=== PATIENT | male | born 1950 | race Caucasian/White ===

== ENCOUNTER 2024-03-30 09:37 | Emergency (ER) | payer MEDICARE, OTHER ==
[2024-03-30 09:55] VITALS: PULSE 97
--- NOTE | 2024-03-30 10:16 | ERPHSYRPT ---
- History of Present Illness Time Seen by Provider: 03/30/24 10:05 Source: patient Exam Limitations: no limitations Patient Subjective Stated Complaint: Pt had a carpal tunnel and trigger finger done on March 22 at [place] and then on 03/25 or 03/26 pt began having swelling and redness to his right lower leg and foot and was placed on antibiotics on Friday, swelling has gotten worse and a red streak is going up his leg Triage Nursing Assessment: Pt brought self to the ER, hypertensive, rates pain as 2/10, pulses normal, right lower leg has redness and swelling and right foot swelling, warm to touch, denies any injuries or any cuts, walked into the ER with a slight limp, doesn't appear to be in any distress Physician History: For the past 5 days pt has had red streaking of his right leg with swelling and pain and redness of his right leg & ankle. Pt states he has been taking clindamycin for the past 3 days. Pt denies fever, nausea, vomiting, chest pain, shortness of air; admits to chronic dry cough for the past 4 years. Allergies/Adverse Reactions: Penicillins Allergy (Verified 03/30/24 09:55) Sulfa (Sulfonamide Antibiotics) Allergy (Verified 03/30/24 09:55) Home Medications: clindamycin HCL [Clindamycin HCl] 300 mg PO TID 03/30/24 [History] Hx Tetanus, Diphtheria Vaccination/Date Given: No Hx Influenza Vaccination/Date Given: Yes Hx Pneumococcal Vaccination/Date Given: Yes Travel Risk - International Travel Have you traveled outside of the country in past 3 weeks: No - Emerging Infectious Disease Are you exhibiting symptoms associated with any current EIDs: No - Review of Systems Constitutional: No Fever Respiratory: Cough, No Dyspnea Cardiac: No Chest Pain Abdominal/Gastrointestinal: No Abdominal Pain, No Nausea, No Vomiting Musculoskeletal: Other (swelling/redness of right leg/ankle) Neurological: No Headache - Past Medical History Pertinent Past Medical History: Yes Neurological History: No Pertinent History Cardiac History: No Pertinent History Respiratory History: No Pertinent History Endocrine Medical History: No Pertinent History Musculoskeletal History: No Pertinent History Other Medical History: L SABINA >20 years ago. - Past Surgical History Past Surgical History: Yes Gastrointestinal: Cholecystectomy, Hemorrhoidectomy Musculoskeletal: Joint Replacement Other Surgical History: left hip replaced, right carpal tunnel, right trigger finger - Social History Smoking Status: Never smoker Exposure to second hand smoke: No Drug Use: none - Social Determinants of Health Will the patient participate in the screening: Yes Do you worry about a steady place to live?: No Do you have any problems with any of the following?: No known problems In the past 12 months,have you had to go without utilities?: No Transportation Issues: No Has anyone in your support network made you feel unsafe?: No Have you or anyone in your house had to go without enough: No - Nursing Vital Signs Nursing Vital Signs: Initial Vital Signs Pulse Rate 97 H 03/30/24 09:45 Blood Pressure 173/115 03/30/24 09:45 O2 Sat by Pulse Oximetry 96 03/30/24 09:45 Pain Scale Pain Intensity 2 - Physical Exam General Appearance: alert Eyes, Ears, Nose, Throat Exam: pharynx normal Neck Exam: normal inspection Cardiovascular/Respiratory Exam: normal breath sounds, heart sounds normal Gastrointestinal/Abdominal Exam: soft (B.S. normal) Hips Exam: bilateral: normal range of motion Legs Exam: right leg: swelling (Distal half of right leg is mildly edematous, tender, erythematous and warm with red streaking from the ankle to mid leg) Knees Exam: bilateral knee: normal range of motion Ankle Exam: right ankle: swelling Foot Exam: right foot: swelling Neuro/Tendon Exam: normal sensation SpO2 Interpretation: normal SpO2: 96 O2 Delivery: Room Air - Course Nursing assessment & vital signs reviewed: Yes - Radiology Exams Right Lower Leg X-ray Interpretation: Discussed w/ radiologist (No bony, articular or soft tissue abnormalities. See rest of report.) - Radiology Ultrasound Exam Venous Lower Extremity Ultrasound: discussed w/radiologist (Right leg negative for DVT) Ordered Tests: Active Orders 24 hr Category Date Time Status IV Insertion STAT Care 03/30/24 10:19 Active LOWER LEG Stat Exams 03/30/24 11:34 Completed VENOUS UNILAT/LIMITED EXTREMIT [US] Stat Exams 03/30/24 11:33 Completed BLOOD CULTURE Stat Lab 03/30/24 11:10 Received BMP Stat Lab 03/30/24 11:00 Completed CBC W DIFF Stat Lab 03/30/24 11:00 Completed MAGNESIUM Stat Lab 03/30/24 11:00 Completed SED RATE [Erythrocyte Sedimentation Rate] Stat Lab 03/30/24 11:00 Completed Medication Summary Discontinued Medications Generic Name Dose Route Start Last Admin Trade Name Ally PRN Reason Stop Dose Admin Vancomycin HCl 1 gm in 200 mls @ 125 mls/hr 03/30/24 10:22 03/30/24 11:46 Vancomycin 1 Gram/200 Ml Bag IV 03/30/24 11:57 125 mls/hr STAT ONE 125 mls/hr Administration Ceftriaxone Sodium 1 gm in 100 mls @ 200 mls/hr 03/30/24 10:22 03/30/24 11:35 Rocephin 1 Gm / 100 Ml Nacl IV 03/30/24 10:51 Infused STAT ONE Infusion Ceftriaxone Sodium Confirm 03/30/24 10:56 Rocephin 1 Gm / 100 Ml Nacl Administered 03/30/24 10:57 Dose 1 gm in 100 mls @ ud IV .STK-MED ONE Vancomycin HCl Confirm 03/30/24 11:44 Vancomycin 1 Gram/200 Ml Bag Administered 03/30/24 11:45 Dose 1 gm in 200 mls @ ud IV .STK-MED ONE Lab/Rad Data: Laboratory Result Diagrams 03/30/24 11:00 03/30/24 11:00 Laboratory Results 03/30/24 03/30/24 03/30/24 Range/Units 11:00 11:00 11:00 WBC 5.6 (4.23-9.07) x10^3/uL RBC 4.65 (4.63-6.08) x10^6/uL Hgb 14.7 (13.7-17.5) g/dL Hct 43.2 (40.1-51.0) % MCV 92.9 H (79.0-92.2) fL MCH 31.6 (25.7-32.2) pg MCHC 34.0 (32.3-36.5) g/dL RDW 12.9 (11.6-14.4) % Plt Count 158 L (163-337) x10^3/uL MPV 9.6 (9.4-12.4) fL Gran % 66.1 (34.0-67.9) % Immature Gran % (Auto) 0.4 (0.001-0.429) % Nucleat RBC Rel Count 0.0 (0.00-0.2) % Eos # (Auto) 0.08 (0.04-0.54) x10^3/uL Immature Gran # (Auto) 0.02 (0.001-0.031) x10^3u/L Absolute Lymphs (auto) 1.33 (1.32-3.57) x10^3/uL Absolute Monos (auto) 0.40 (0.30-0.82) x10^3/uL Absolute Nucleated RBC 0.00 (0.00-0.012) x10^3u/L Lymphocytes % 23.8 (21.8-53.1) % Monocytes % 7.2 (5.3-12.2) % Eosinophils % 1.4 (0.8-7.0) % Basophils % 1.1 (0.2-1.2) % Absolute Granulocytes 3.70 (1.78-5.38) x10^3/uL Basophils # 0.06 (0.01-0.08) x10^3/uL ESR 19 H (0-15) mm/hr Sodium 142 (135-145) mmol/L Potassium 3.9 (3.5-5.1) mmol/L Chloride 106 (98-107) mmol/L Carbon Dioxide 28 (22-30) mmol/L Anion Gap 12.3 (5-15) MEQ/L BUN 16 (9-20) mg/dL Creatinine 1.05 (0.66-1.25) mg/dL Estimated GFR 74.5 ML/MIN Glucose 109 H (74-106) mg/dL Calcium 9.6 (8.4-10.2) mg/dL Magnesium 2.3 (1.6-2.3) mg/dL - Progress Progress: unchanged Will see patient in: other (Dr [id number]) accepted pt for transfer to [facility] ER.) Counseled pt/family regarding: lab results, diagnosis, rad results Medical Desision Making - Diagnostic Testing Diagnostic test were ordered, analyzed, and reviewed by me: Yes Radiological Interpretation: Discussed w/ radiologist - Departure Departure Disposition: Transfer ([facility]) Clinical Impression: Cellulitis of right leg, Lymphangitis of right leg Condition: Stable Critical Care Time: No Referrals: FABIOLA CHAVEZ, [Primary Care Provider] - Follow up/PCP as directed
[2024-03-30] MEDS ORDERED: ROCEPHIN 1 GM / 100 ML NaCl 1 GM/100 ML IVPB IV ONE (10:56)
[2024-03-30] MEDS: ROCEPHIN 1 GM / 100 ML NaCl 1 GM/100 ML IVPB IV ONE (10:58)
[2024-03-30 11:02] VITALS: BP 151/98
[2024-03-30 11:16] LABS: BASOPHIL % 1.1 % (0.2-1.2); Basophil (Absolute #) 0.06 x10^3/uL (0.01-0.08); Eosinophil % 1.4 % (0.8-7.0); Eosinophil (Absolute #) 0.08 x10^3/uL (0.04-0.54); Hematocrit 43.2 % (40.1-51.0); Hemoglobin 14.7 g/dL (13.7-17.5); IMMATURE GRAN # 0.02 x10^3u/L (0.001-0.031); IMMATURE GRAN % 0.4 % (0.001-0.429); Lymphocyte (Absolute #) 1.33 x10^3/uL (1.32-3.57); Lymphocytes % 23.8 % (21.8-53.1); Mean Cell Volume 92.9 fL (79.0-92.2); Mean Corpuscular Hemoglobin 31.6 pg (25.7-32.2); Mean Platelet Volume 9.6 fL (9.4-12.4); Monocytes % 7.2 % (5.3-12.2); Neutrophil % 66.1 % (34.0-67.9); Platelet Count 158 x10^3/uL (163-337); Red Blood Count 4.65 x10^6/uL (4.63-6.08); Red Cell Distribution Width 12.9 % (11.6-14.4); White Blood Count 5.6 x10^3/uL (4.23-9.07)
[2024-03-30 11:29] LABS: ANION GAP 12.3 MEQ/L (5-15); Calcium 9.6 mg/dL (8.4-10.2); Creatinine 1 1.05 mg/dL (0.66-1.25); EST GLOMERULAR FILTRATION RATE 74.5 ML/MIN; MAGNESIUM 2.3 mg/dL (1.6-2.3); Potassium 3.9 mmol/L (3.5-5.1)
[2024-03-30] MEDS ORDERED: VANCOMYCIN 1 GRAM/200 ML BAG 1 GM/200 ML PIGGYBACK IV ONE (11:44)
[2024-03-30] MEDS: VANCOMYCIN 1 GRAM/200 ML BAG 1 GM/200 ML PIGGYBACK IV ONE (11:46)
--- NOTE | 2024-03-30 12:45 | XRAY ---
Indication: Pain and swelling. Two-dimensional sonogram and color Doppler imaging major venous vessels right leg performed. Comparison: None No thrombus seen in the examined deep venous vessels right leg including greater saphenous vein. Veins demonstrate normal compressibility. Venous waveforms are normal with and without augmentation. Impression: Right leg negative for DVT.
[2024-03-30 12:47] VITALS: O2SAT 96
--- NOTE | 2024-03-30 12:52 | XRAY ---
Indication: Pain and swelling 2-3 days. Comparison: None 2 view right lower leg demonstrates osteopenia, small posterior/plantar heel spurs, and 8 mm round benign-appearing suprapatella soft tissue calcification. No other bony, articular, or soft tissue abnormalities.
== END 2024-03-30 13:53 | disposition short-term general hospital (02) ==
LOC: ED 09:37
DX: L03.115 Cellulitis of right lower limb (principal); M79.604 Pain in right leg; M25.571 Pain in right ankle and joints of right foot; Z79.899 Other long term (current) drug therapy
CPT/HCPCS: 36000; 36415; 73590; 80048; 83735; 85025; 85652; 87040; 93971; 96365; 96367; 99284; J0696; J3370

== ENCOUNTER 2025-05-24 15:20 | Observation (INO) | payer MEDICARE, OTHER ==
[2025-05-24 15:55] LABS: BASOPHIL % 0.4 % (0.2-1.2); Basophil (Absolute #) 0.04 x10^3/uL (0.01-0.08); Eosinophil (Absolute #) 0 x10^3/uL (0.04-0.54); Hematocrit 43.7 % (40.1-51.0); Hemoglobin 14.6 g/dL (13.7-17.5); IMMATURE GRAN # 0.08 x10^3u/L (0.001-0.031); IMMATURE GRAN % 0.8 % (0.001-0.429); Lymphocyte (Absolute #) 0.57 x10^3/uL (1.32-3.57); Mean Corpuscular Hemoglobin 30.9 pg (25.7-32.2); Mean Corpuscular Hgb Concent. 33.4 g/dL (32.3-36.5); Monocyte (Absolute #) 0.42 x10^3/uL (0.30-0.82); NUCLEATED RBC # 0.00 x10^3u/L (0.00-0.012); NUCLEATED RBC % 0.0 % (0.00-0.2); Platelet Count 109 x10^3/uL (163-337); Red Blood Count 4.73 x10^6/uL (4.63-6.08); White Blood Count 10.6 x10^3/uL (4.23-9.07)
[2025-05-24] MEDS ORDERED: MOTRIN 600 MG ONE (15:55)
[2025-05-24] MEDS ORDERED: TYLENOL 325 MG ONE (15:55)
[2025-05-24] MEDS: TYLENOL 325 MG PO STA (15:58)
[2025-05-24] MEDS: MOTRIN 600 MG PO STA (15:58)
[2025-05-24 16:01] LABS: Calcium 8.8 mg/dL (8.4-10.2); Carbon Dioxide 26.0 mmol/L (22-30); Creatinine 1 1.19 mg/dL (0.66-1.25); EST GLOMERULAR FILTRATION RATE 63.7 ML/MIN; Glucose 139.0 mg/dL (74-106); Potassium 4.5 mmol/L (3.5-5.1); SGOT/AST 33.0 U/L (17-59); SGPT/ALT 34.0 U/L (0-50); Total Protein 7.4 g/dL (6.3-8.2)
[2025-05-24 16:01] LABS: Glucose, Urine Negative (Negative); Protein,Urine Dip Trace (Negative); WBC 0-2 /HPF (0-5)
[2025-05-24 16:14] LABS: NT PRO BNPII 127 pg/mL (<300); TROPONIN < 0.012 ng/mL (0.000-0.033)
--- NOTE | 2025-05-24 16:26 | XRAY ---
Indication: Fever. Comparison: None Portable chest inflated and clear. Heart not enlarged with small bilateral perihilar calcified granulomas. Bony thorax intact with minimal degenerative changes. Impression: Nonacute chest with chronic features.
[2025-05-24 16:53] LABS: Slide Review 1 YES
[2025-05-24 17:02] LABS: INFLUENZA A NEGATIVE (NEGATIVE); INFLUENZA B NEGATIVE (NEGATIVE); RESPIRATORY SYNCTIAL VIRUS NEGATIVE (NEGATIVE); SARS-CoV-2 Xpert Express NEGATIVE (NEGATIVE)
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
[2025-05-24] MEDS ORDERED: DUONEB 0.5-3 MG/3 ml Neb IH ONE (19:51)
[2025-05-24] MEDS: solu-MEDROL 125 MG, Sterile H2O 10 ml 2 ML IV ONE (19:54)
[2025-05-24] MEDS ORDERED: Sterile H2O 10 ml IJ ONE (19:54)
[2025-05-24] MEDS: DUONEB 0.5-3 MG/3 ml Neb IH ONE (20:04)
[2025-05-24] MEDS ORDERED: Levofloxacin 500MG/100ML D5W 500 MG/100 ML BAG IV ONE (20:14)
[2025-05-24] MEDS: Levofloxacin 500MG/100ML D5W 500 MG/100 ML BAG IV STA (20:15)
--- NOTE | 2025-05-24 21:12 | PCM.HP ---
History of Present Illness - Chief Complaint Chief Complaint: Hypoxia, fever, tachycardia History of Present Illness: is a 74 year old male with past medical history of class I obesity, obstructive sleep apnea, long COVID (had symptoms for 3 months), and HLD presented to the ED complaining of nausea with vomiting and dizziness that started earlier in the day while he was at [facility] for work. 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 We went home and felt weak and was having shortness of breath. He reportedly went to an outpatient center for evaluation and was hypoxic with O2 sats in the 80s on room air. Was referred to come to the ED where his oxygen sats are levels have been in the mid 90s on room air. He was noted to be tachycardic with heart rate in the 120s and had a documented fever of 100.6 F. He denies chest pain, palpitations, or diarrhea. He was empirically treated with Levaquin for possible pneumonia. Lab workup was notable for leukocytosis but no clear source of infection. COVID-19, influenza and RSV were negative. Patient had a CTA of the chest to rule out PE due to elevated D-dimer and preliminary radiology read was that there was no PE but there were findings of emphysema, fatty liver, hepatic cyst, old granulomatous disease. 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 He denies smoking or exposure to second hand smoke. Patient reports feeling much better now and is ready to go home. - Review of Systems Constitutional: Fever, Chills, Fatigue, Weakness Eyes: No Symptoms Ears, Nose, & Throat: No Symptoms Respiratory: Cough, Short Of Breath, Wheezing Cardiac: No Symptoms Abdominal/Gastrointestinal: Nausea, Vomiting Genitourinary Symptoms: No Symptoms Musculoskeletal: No Symptoms Skin: No Symptoms Neurological: No Symptoms Psychological: No Symptoms Endocrine: No Symptoms Hematologic/Lymphatic: No Symptoms Immunological/Allergic: No Symptoms All Other Systems: Reviewed and Negative Medications & Allergies Home Medications: Home Medication List Rosuvastatin Calcium 1 tab PO DAILY 03/30/25 [History Confirmed 05/24/25] Allergies/Adverse Reactions: Allergies Allergy/AdvReac Type Severity Reaction Status Date / Time Penicillins Allergy Verified 05/24/25 16:08 Sulfa (Sulfonamide Allergy Verified 05/24/25 16:08 Antibiotics) - Past Medical History Past Medical History: Yes Neurological History: No Pertinent History ENT History: No Pertinent History Cardiac History: No Pertinent History Respiratory History: Asthma, Sleep Apnea Endocrine Medical History: No Pertinent History Musculoskelatal History: No Pertinent History, Arthritis GI Medical History: No Pertinent History History: No Pertinent History Pyscho-Social History: No Pertinent History Male Reproductive Disorders: No Pertinent History Comment: L SABINA >20 years ago. - Past Surgical History Past Surgical History: Yes Neuro Surgical History: No Pertinent History Cardiac History: No Pertinent History Respiratory Surgery: No Pertinent History GI Surgical History: Cholecystectomy, Hemorrhoidectomy Genitourinary Surgical Hx: No Pertinent History Musculskeletal Surgical Hx: Joint Replacement, Orthopedic Surgery Male Surgical History: No Pertinent History Other Surgical History: left hip replaced, right carpal tunnel, right trigger finger, tendon repair left elbow - Social History Smoking Status: Never smoker Exposure to second hand smoke: No Alcohol: None Drug Use: none - Social Determinants of Health Will the patient participate in the screening: Yes Do you worry about a steady place to live?: No Do you have any problems with any of the following?: No known problems In the past 12 months,have you had to go without utilities?: No Have you or anyone in your house had to go without enough: No Transportation Issues: No Has anyone in your support network made you feel unsafe?: No - Physical Exam Vital Signs: Vital Signs - 24 hr Temp Pulse Resp BP BP Pulse Ox 05/24/25 20:10 94 L 05/24/25 20:04 99 H 18 94 L 05/24/25 20:00 99 F 97 H 26 H 106/71 99 05/24/25 19:30 96 H 31 H 106/75 99 05/24/25 19:00 102 H 16 97/73 95 05/24/25 18:30 104 H 21 103/61 94 L 05/24/25 18:00 109 H 31 H 112/63 92 L 05/24/25 17:30 112 H 31 H 124/76 93 L 05/24/25 17:00 120 H 31 H 140/74 140/74 95 05/24/25 16:30 120 H 26 H 146/88 95 05/24/25 16:24 120 H 20 130/80 98 05/24/25 16:00 120 H 23 130/80 95 05/24/25 15:45 95 05/24/25 15:40 100.6 F 122 H 20 132/84 98 05/24/25 15:30 121 H 27 H 132/84 94 L General Appearance: no apparent distress Neurologic Exam: alert, oriented x 3, cooperative, normal mood/affect Eye Exam: PERRL/EOMI Ears, Nose, Throat Exam: moist mucous membranes Neck Exam: normal inspection Respiratory Exam: diminished breath sounds, wheezing Cardiovascular Exam: regular rate/rhythm, normal heart sounds Gastrointestinal/Abdomen Exam: soft, normal bowel sounds Extremity Exam: normal inspection Skin Exam: normal color Results - Labs Lab/Micro Results: Lab Results-Last 24 Hours 05/24/25 05/24/25 05/24/25 Range/Units 15:45 15:45 15:45 WBC 10.6 H (4.23-9.07) x10^3/uL RBC 4.73 (4.63-6.08) x10^6/uL Hgb 14.6 (13.7-17.5) g/dL Hct 43.7 (40.1-51.0) % MCV 92.4 H (79.0-92.2) fL MCH 30.9 (25.7-32.2) pg MCHC 33.4 (32.3-36.5) g/dL RDW 13.0 (11.6-14.4) % Plt Count 109 L (163-337) x10^3/uL MPV 9.6 (9.4-12.4) fL Gran % 89.4 H (34.0-67.9) % Immature Gran % (Auto) 0.8 H (0.001-0.429) % Nucleat RBC Rel Count 0.0 (0.00-0.2) % Eos # (Auto) 0 L (0.04-0.54) x10^3/uL Immature Gran # (Auto) 0.08 H (0.001-0.031) x10^3u/L Absolute Lymphs (auto) 0.57 L (1.32-3.57) x10^3/uL Absolute Monos (auto) 0.42 (0.30-0.82) x10^3/uL Absolute Nucleated RBC 0.00 (0.00-0.012) x10^3u/L Lymphocytes % 5.4 L (21.8-53.1) % Monocytes % 4.0 L (5.3-12.2) % Eosinophils % 0.0 L (0.8-7.0) % Basophils % 0.4 (0.2-1.2) % Absolute Granulocytes 9.46 H (1.78-5.38) x10^3/uL Basophils # 0.04 (0.01-0.08) x10^3/uL D-Dimer (0.0-0.50) mg/L Sodium 136 (135-145) mmol/L Potassium 4.5 (3.5-5.1) mmol/L Chloride 102 (98-107) mmol/L Carbon Dioxide 26 (22-30) mmol/L Anion Gap 12.2 (5-15) MEQ/L BUN 19 (9-20) mg/dL Creatinine 1.19 (0.66-1.25) mg/dL Estimated GFR 63.7 ML/MIN Glucose 139 H (74-106) mg/dL Lactic Acid 1.9 (0.4-2.0) Calcium 8.8 (8.4-10.2) mg/dL Total Bilirubin 1.20 (0.2-1.3) mg/dL AST 33 (17-59) U/L ALT 34 (0-50) U/L Alkaline Phosphatase 50 (38-126) U/L Troponin I (0.000-0.033) ng/mL NT-Pro-B Natriuret Pep (<300) pg/mL Serum Total Protein 7.4 (6.3-8.2) g/dL Albumin 4.3 (3.5-5.0) g/dL Urine Color (Yellow) Urine Appearance (Clear) Urine pH (4.6-8.0) Ur Specific Skippers (1.005-1.030) Urine Protein (Negative) Urine Glucose (UA) (Negative) mg/dL Urine Ketones (Negative) Urine Blood (Negative) Urine Nitrite (Negative) Urine Bilirubin (Negative) Urine Urobilinogen (0.2) mg/dL Ur Leukocyte Esterase (Negative) U Hyaline Cast (Auto) (0-2) /LPF Urine Microscopic RBC (0-5) /HPF Urine Microscopic WBC (0-5) /HPF Ur Epithelial Cells (None Seen) /HPF Urine Bacteria (None Seen) /HPF Urine Culture Reflexed (NO) Influenza Type A Ag (NEGATIVE) Influenza Type B Ag (NEGATIVE) RSV (PCR) (NEGATIVE) SARS-CoV-2 (PCR) (NEGATIVE) Slides for Path Review YES 05/24/25 05/24/25 05/24/25 Range/Units 15:45 15:45 15:51 WBC (4.23-9.07) x10^3/uL RBC (4.63-6.08) x10^6/uL Hgb (13.7-17.5) g/dL Hct (40.1-51.0) % MCV (79.0-92.2) fL MCH (25.7-32.2) pg MCHC (32.3-36.5) g/dL RDW (11.6-14.4) % Plt Count (163-337) x10^3/uL MPV (9.4-12.4) fL Gran % (34.0-67.9) % Immature Gran % (Auto) (0.001-0.429) % Nucleat RBC Rel Count (0.00-0.2) % Eos # (Auto) (0.04-0.54) x10^3/uL Immature Gran # (Auto) (0.001-0.031) x10^3u/L Absolute Lymphs (auto) (1.32-3.57) x10^3/uL Absolute Monos (auto) (0.30-0.82) x10^3/uL Absolute Nucleated RBC (0.00-0.012) x10^3u/L Lymphocytes % (21.8-53.1) % Monocytes % (5.3-12.2) % Eosinophils % (0.8-7.0) % Basophils % (0.2-1.2) % Absolute Granulocytes (1.78-5.38) x10^3/uL Basophils # (0.01-0.08) x10^3/uL D-Dimer 0.54 H (0.0-0.50) mg/L Sodium (135-145) mmol/L Potassium (3.5-5.1) mmol/L Chloride (98-107) mmol/L Carbon Dioxide (22-30) mmol/L Anion Gap (5-15) MEQ/L BUN (9-20) mg/dL Creatinine (0.66-1.25) mg/dL Estimated GFR ML/MIN Glucose (74-106) mg/dL Lactic Acid (0.4-2.0) Calcium (8.4-10.2) mg/dL Total Bilirubin (0.2-1.3) mg/dL AST (17-59) U/L ALT (0-50) U/L Alkaline Phosphatase (38-126) U/L Troponin I < 0.012 (0.000-0.033) ng/mL NT-Pro-B Natriuret Pep 127 (<300) pg/mL Serum Total Protein (6.3-8.2) g/dL Albumin (3.5-5.0) g/dL Urine Color Yellow (Yellow) Urine Appearance Clear (Clear) Urine pH 8.0 (4.6-8.0) Ur Specific Skippers 1.020 (1.005-1.030) Urine Protein Trace A (Negative) Urine Glucose (UA) Negative (Negative) mg/dL Urine Ketones Negative (Negative) Urine Blood Trace (Negative) Urine Nitrite Negative (Negative) Urine Bilirubin Negative (Negative) Urine Urobilinogen 1.0 A (0.2) mg/dL Ur Leukocyte Esterase Negative (Negative) U Hyaline Cast (Auto) NONE SEEN (0-2) /LPF Urine Microscopic RBC 6-10 A (0-5) /HPF Urine Microscopic WBC 0-2 (0-5) /HPF Ur Epithelial Cells None Seen (None Seen) /HPF Urine Bacteria None Seen (None Seen) /HPF Urine Culture Reflexed YES (NO) Influenza Type A Ag (NEGATIVE) Influenza Type B Ag (NEGATIVE) RSV (PCR) (NEGATIVE) SARS-CoV-2 (PCR) (NEGATIVE) Slides for Path Review 05/24/25 05/24/25 Range/Units 16:13 19:55 WBC (4.23-9.07) x10^3/uL RBC (4.63-6.08) x10^6/uL Hgb (13.7-17.5) g/dL Hct (40.1-51.0) % MCV (79.0-92.2) fL MCH (25.7-32.2) pg MCHC (32.3-36.5) g/dL RDW (11.6-14.4) % Plt Count (163-337) x10^3/uL MPV (9.4-12.4) fL Gran % (34.0-67.9) % Immature Gran % (Auto) (0.001-0.429) % Nucleat RBC Rel Count (0.00-0.2) % Eos # (Auto) (0.04-0.54) x10^3/uL Immature Gran # (Auto) (0.001-0.031) x10^3u/L Absolute Lymphs (auto) (1.32-3.57) x10^3/uL Absolute Monos (auto) (0.30-0.82) x10^3/uL Absolute Nucleated RBC (0.00-0.012) x10^3u/L Lymphocytes % (21.8-53.1) % Monocytes % (5.3-12.2) % Eosinophils % (0.8-7.0) % Basophils % (0.2-1.2) % Absolute Granulocytes (1.78-5.38) x10^3/uL Basophils # (0.01-0.08) x10^3/uL D-Dimer (0.0-0.50) mg/L Sodium (135-145) mmol/L Potassium (3.5-5.1) mmol/L Chloride (98-107) mmol/L Carbon Dioxide (22-30) mmol/L Anion Gap (5-15) MEQ/L BUN (9-20) mg/dL Creatinine (0.66-1.25) mg/dL Estimated GFR ML/MIN Glucose (74-106) mg/dL Lactic Acid (0.4-2.0) Calcium (8.4-10.2) mg/dL Total Bilirubin (0.2-1.3) mg/dL AST (17-59) U/L ALT (0-50) U/L Alkaline Phosphatase (38-126) U/L Troponin I < 0.012 (0.000-0.033) ng/mL NT-Pro-B Natriuret Pep (<300) pg/mL Serum Total Protein (6.3-8.2) g/dL Albumin (3.5-5.0) g/dL Urine Color (Yellow) Urine Appearance (Clear) Urine pH (4.6-8.0) Ur Specific Skippers (1.005-1.030) Urine Protein (Negative) Urine Glucose (UA) (Negative) mg/dL Urine Ketones (Negative) Urine Blood (Negative) Urine Nitrite (Negative) Urine Bilirubin (Negative) Urine Urobilinogen (0.2) mg/dL Ur Leukocyte Esterase (Negative) U Hyaline Cast (Auto) (0-2) /LPF Urine Microscopic RBC (0-5) /HPF Urine Microscopic WBC (0-5) /HPF Ur Epithelial Cells (None Seen) /HPF Urine Bacteria (None Seen) /HPF Urine Culture Reflexed (NO) Influenza Type A Ag NEGATIVE (NEGATIVE) Influenza Type B Ag NEGATIVE (NEGATIVE) RSV (PCR) NEGATIVE (NEGATIVE) SARS-CoV-2 (PCR) NEGATIVE (NEGATIVE) Slides for Path Review - Radiology Impressions Radiology Exams & Impressions: Radiology Procedures Category Date Time Status CHEST 1 VIEW (PORTABLE) Stat Exams 05/24/25 15:46 Completed CHEST WITH CONTRAST [CT] Stat Exams 05/24/25 17:19 Taken - Other Procedures and Tests Respiratory Therapy 05/24/25 20:04 Respiratory Therapy Assessment DAILY Assessment/Plan (1) Acute respiratory failure with hypoxia Current Visit: Yes Status: Acute Assessment & Plan: Unclear etiology - possibly due to acute viral URI Not currently requiring supplemental oxygen Continues to have some wheezing and diminished breath sounds - will manage with PRN Duonebs and course of prednisone Code(s): J96.01 - ACUTE RESPIRATORY FAILURE WITH HYPOXIA (2) SIRS (systemic inflammatory response syndrome) Current Visit: Yes Status: Acute Assessment & Plan: No clear source of infection but possibly acute viral URI Monitor clinically off of antibiotics Acetaminophen for fever Tachycardia resolved with fluids Recheck CBC in AM for WBC count Follow-up blood culture results Code(s): R65.10 - SIRS OF NON-INFECTIOUS ORIGIN W/O ACUTE ORGAN DYSFUNCTION (3) Fever Current Visit: Yes Status: Acute Qualifiers: Fever type: unspecified Qualified Code(s): R50.9 - Fever, unspecified Assessment & Plan: Acetaminophen PRN Follow-up blood cultures Code(s): R50.9 - FEVER, UNSPECIFIED (4) Tachycardia Current Visit: Yes Status: Acute Assessment & Plan: Resolved with IV fluids Continue IV hydration for now until oral intake improves Code(s): R00.0 - TACHYCARDIA, UNSPECIFIED (5) Leukocytosis Current Visit: Yes Status: Acute Qualifiers: Leukocytosis type: unspecified Qualified Code(s): D72.829 - Elevated white blood cell count, unspecified Assessment & Plan: Recheck CBC in AM Code(s): D72.829 - ELEVATED WHITE BLOOD CELL COUNT, UNSPECIFIED (6) Lung abnormality Current Visit: Yes Status: Suspected Assessment & Plan: Given occupational history and previous Long COVID episode, would benefit from outpatient evaluation with pulmonary disease specialist Code(s): J98.4 - OTHER DISORDERS OF LUNG (7) Hyperlipidemia Current Visit: Yes Status: Acute Code(s): E78.5 - HYPERLIPIDEMIA, UNSPECIFIED (8) DARIAN (obstructive sleep apnea) Current Visit: Yes Status: Chronic Assessment & Plan: Does not use CPAP at home Code(s): G47.33 - OBSTRUCTIVE SLEEP APNEA (ADULT) (PEDIATRIC) (9) Nausea & vomiting Current Visit: Yes Status: Acute Qualifiers: Vomiting type: unspecified Qualified Code(s): R11.2 - Nausea with vomiting, unspecified Assessment & Plan: Ondansetron PRN Code(s): R11.2 - NAUSEA WITH VOMITING, UNSPECIFIED Telemedicine Encounter - Telemedicine Encounter Telemedicine Encounter: Regular diet as tolerated Heparin for DVT PPx Full Code Plan of care discussed with patient and primary RN Total time of care 70 mins "The entirety of this encounter was performed via Telemedicine" This visit was performed using real-time audio and video connection between my location and thepatients locationwith the assistance of a surrogateat the patients location. Written or verbal consent was obtained from the patient/guardian to perform this [facility]. Any patient questions regarding the telemedicine interaction were answered.
[2025-05-24] MEDS ORDERED: Zofran 4 MG/2 ML VIAL IV PRN (22:41)
[2025-05-24] MEDS ORDERED: TYLENOL 325 MG PO PRN (22:41)
[2025-05-24] MEDS ORDERED: DUONEB 0.5-3 MG/3 ml Neb IH PRN (22:44)
[2025-05-25 02:12] LABS: BASOPHIL % 0.1 % (0.2-1.2); Basophil (Absolute #) 0.01 x10^3/uL (0.01-0.08); Eosinophil (Absolute #) 0 x10^3/uL (0.04-0.54); Hematocrit 41.6 % (40.1-51.0); Hemoglobin 13.7 g/dL (13.7-17.5); IMMATURE GRAN # 0.04 x10^3u/L (0.001-0.031); IMMATURE GRAN % 0.5 % (0.001-0.429); Lymphocyte (Absolute #) 0.54 x10^3/uL (1.32-3.57); Mean Corpuscular Hemoglobin 30.6 pg (25.7-32.2); Mean Corpuscular Hgb Concent. 32.9 g/dL (32.3-36.5); Monocyte (Absolute #) 0.07 x10^3/uL (0.30-0.82); NUCLEATED RBC # 0.00 x10^3u/L (0.00-0.012); NUCLEATED RBC % 0.0 % (0.00-0.2); Platelet Count 101 x10^3/uL (163-337); Red Blood Count 4.48 x10^6/uL (4.63-6.08); White Blood Count 8.1 x10^3/uL (4.23-9.07)
[2025-05-25 02:33] LABS: Calcium 8.5 mg/dL (8.4-10.2); Carbon Dioxide 22.0 mmol/L (22-30); Creatinine 1 1.16 mg/dL (0.66-1.25); EST GLOMERULAR FILTRATION RATE 65.7 ML/MIN; Glucose 224.0 mg/dL (74-106); Potassium 4.5 mmol/L (3.5-5.1); SGOT/AST 29.0 U/L (17-59); SGPT/ALT 32.0 U/L (0-50); Total Protein 6.7 g/dL (6.3-8.2)
--- NOTE | 2025-05-25 05:12 | PCM.NOTE ---
Date and Time: 05/25/25 0502 Subjective Assessment: Mr. 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 He was initially evaluated at an outpatient center where he was hypoxic (SpO2 in the 80s on room air), prompting ED referral. Upon arrival to ED SpO2 mid-90s on room air, febrile (100.6 F), tachycardic (HR 120s). Denied chest pain, palpitations, or diarrhea. Treated empirically with IV fluids and one dose of levofloxacin. Lab findings remarkable for Leukocytosis which has now normalized to 8.1; BUN 22, creatinine 1.18 (baseline 1.31.4). Viral panel (COVID-19, influenza, RSV) negative. 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 Objective Data Vital Signs: Vital Signs - 24 hr Temp Pulse Resp BP BP Pulse Ox 05/25/25 04:00 97.3 F 76 16 114/61 90 L 05/24/25 23:54 98.5 F 91 H 16 115/58 93 L 05/24/25 21:03 97.6 F 95 H 18 114/57 94 L 05/24/25 20:33 93 L 05/24/25 20:10 94 L 05/24/25 20:04 99 H 18 94 L 05/24/25 20:00 99 F 97 H 26 H 106/71 99 05/24/25 19:30 96 H 31 H 106/75 99 05/24/25 19:00 102 H 16 97/73 95 05/24/25 18:30 104 H 21 103/61 94 L 05/24/25 18:00 109 H 31 H 112/63 92 L 05/24/25 17:30 112 H 31 H 124/76 93 L 05/24/25 17:00 120 H 31 H 140/74 140/74 95 05/24/25 16:30 120 H 26 H 146/88 95 05/24/25 16:24 120 H 20 130/80 98 05/24/25 16:00 120 H 23 130/80 95 05/24/25 15:45 95 05/24/25 15:40 100.6 F 122 H 20 132/84 98 05/24/25 15:30 121 H 27 H 132/84 94 L Pain Assessment - Last Documented Pain Intensity 0 Pain Scale Used 0-10 Pain Scale Intake and Output: Intake & Output 05/22/25 05/23/25 05/24/25 05/25/25 11:59 11:59 11:59 11:59 Intake Total 1661 Balance 1661 Weight 108.5 kg Lab Results: Lab Results-Last 24 Hours 05/24/25 05/24/25 05/24/25 Range/Units 15:45 15:45 15:45 WBC 10.6 H (4.23-9.07) x10^3/uL RBC 4.73 (4.63-6.08) x10^6/uL Hgb 14.6 (13.7-17.5) g/dL Hct 43.7 (40.1-51.0) % MCV 92.4 H (79.0-92.2) fL MCH 30.9 (25.7-32.2) pg MCHC 33.4 (32.3-36.5) g/dL RDW 13.0 (11.6-14.4) % Plt Count 109 L (163-337) x10^3/uL MPV 9.6 (9.4-12.4) fL Gran % 89.4 H (34.0-67.9) % Immature Gran % (Auto) 0.8 H (0.001-0.429) % Nucleat RBC Rel Count 0.0 (0.00-0.2) % Eos # (Auto) 0 L (0.04-0.54) x10^3/uL Immature Gran # (Auto) 0.08 H (0.001-0.031) x10^3u/L Absolute Lymphs (auto) 0.57 L (1.32-3.57) x10^3/uL Absolute Monos (auto) 0.42 (0.30-0.82) x10^3/uL Absolute Nucleated RBC 0.00 (0.00-0.012) x10^3u/L Lymphocytes % 5.4 L (21.8-53.1) % Monocytes % 4.0 L (5.3-12.2) % Eosinophils % 0.0 L (0.8-7.0) % Basophils % 0.4 (0.2-1.2) % Absolute Granulocytes 9.46 H (1.78-5.38) x10^3/uL Basophils # 0.04 (0.01-0.08) x10^3/uL D-Dimer (0.0-0.50) mg/L Sodium 136 (135-145) mmol/L Potassium 4.5 (3.5-5.1) mmol/L Chloride 102 (98-107) mmol/L Carbon Dioxide 26 (22-30) mmol/L Anion Gap 12.2 (5-15) MEQ/L BUN 19 (9-20) mg/dL Creatinine 1.19 (0.66-1.25) mg/dL Estimated GFR 63.7 ML/MIN Glucose 139 H (74-106) mg/dL Lactic Acid 1.9 (0.4-2.0) Calcium 8.8 (8.4-10.2) mg/dL Total Bilirubin 1.20 (0.2-1.3) mg/dL AST 33 (17-59) U/L ALT 34 (0-50) U/L Alkaline Phosphatase 50 (38-126) U/L Troponin I (0.000-0.033) ng/mL NT-Pro-B Natriuret Pep (<300) pg/mL Serum Total Protein 7.4 (6.3-8.2) g/dL Albumin 4.3 (3.5-5.0) g/dL Urine Color (Yellow) Urine Appearance (Clear) Urine pH (4.6-8.0) Ur Specific Hickman (1.005-1.030) Urine Protein (Negative) Urine Glucose (UA) (Negative) mg/dL Urine Ketones (Negative) Urine Blood (Negative) Urine Nitrite (Negative) Urine Bilirubin (Negative) Urine Urobilinogen (0.2) mg/dL Ur Leukocyte Esterase (Negative) U Hyaline Cast (Auto) (0-2) /LPF Urine Microscopic RBC (0-5) /HPF Urine Microscopic WBC (0-5) /HPF Ur Epithelial Cells (None Seen) /HPF Urine Bacteria (None Seen) /HPF Urine Culture Reflexed (NO) Influenza Type A Ag (NEGATIVE) Influenza Type B Ag (NEGATIVE) RSV (PCR) (NEGATIVE) SARS-CoV-2 (PCR) (NEGATIVE) Slides for Path Review YES 05/24/25 05/24/25 05/24/25 Range/Units 15:45 15:45 15:51 WBC (4.23-9.07) x10^3/uL RBC (4.63-6.08) x10^6/uL Hgb (13.7-17.5) g/dL Hct (40.1-51.0) % MCV (79.0-92.2) fL MCH (25.7-32.2) pg MCHC (32.3-36.5) g/dL RDW (11.6-14.4) % Plt Count (163-337) x10^3/uL MPV (9.4-12.4) fL Gran % (34.0-67.9) % Immature Gran % (Auto) (0.001-0.429) % Nucleat RBC Rel Count (0.00-0.2) % Eos # (Auto) (0.04-0.54) x10^3/uL Immature Gran # (Auto) (0.001-0.031) x10^3u/L Absolute Lymphs (auto) (1.32-3.57) x10^3/uL Absolute Monos (auto) (0.30-0.82) x10^3/uL Absolute Nucleated RBC (0.00-0.012) x10^3u/L Lymphocytes % (21.8-53.1) % Monocytes % (5.3-12.2) % Eosinophils % (0.8-7.0) % Basophils % (0.2-1.2) % Absolute Granulocytes (1.78-5.38) x10^3/uL Basophils # (0.01-0.08) x10^3/uL D-Dimer 0.54 H (0.0-0.50) mg/L Sodium (135-145) mmol/L Potassium (3.5-5.1) mmol/L Chloride (98-107) mmol/L Carbon Dioxide (22-30) mmol/L Anion Gap (5-15) MEQ/L BUN (9-20) mg/dL Creatinine (0.66-1.25) mg/dL Estimated GFR ML/MIN Glucose (74-106) mg/dL Lactic Acid (0.4-2.0) Calcium (8.4-10.2) mg/dL Total Bilirubin (0.2-1.3) mg/dL AST (17-59) U/L ALT (0-50) U/L Alkaline Phosphatase (38-126) U/L Troponin I < 0.012 (0.000-0.033) ng/mL NT-Pro-B Natriuret Pep 127 (<300) pg/mL Serum Total Protein (6.3-8.2) g/dL Albumin (3.5-5.0) g/dL Urine Color Yellow (Yellow) Urine Appearance Clear (Clear) Urine pH 8.0 (4.6-8.0) Ur Specific Hickman 1.020 (1.005-1.030) Urine Protein Trace A (Negative) Urine Glucose (UA) Negative (Negative) mg/dL Urine Ketones Negative (Negative) Urine Blood Trace (Negative) Urine Nitrite Negative (Negative) Urine Bilirubin Negative (Negative) Urine Urobilinogen 1.0 A (0.2) mg/dL Ur Leukocyte Esterase Negative (Negative) U Hyaline Cast (Auto) NONE SEEN (0-2) /LPF Urine Microscopic RBC 6-10 A (0-5) /HPF Urine Microscopic WBC 0-2 (0-5) /HPF Ur Epithelial Cells None Seen (None Seen) /HPF Urine Bacteria None Seen (None Seen) /HPF Urine Culture Reflexed YES (NO) Influenza Type A Ag (NEGATIVE) Influenza Type B Ag (NEGATIVE) RSV (PCR) (NEGATIVE) SARS-CoV-2 (PCR) (NEGATIVE) Slides for Path Review 05/24/25 05/24/25 05/25/25 Range/Units 16:13 19:55 02:08 WBC (4.23-9.07) x10^3/uL RBC (4.63-6.08) x10^6/uL Hgb (13.7-17.5) g/dL Hct (40.1-51.0) % MCV (79.0-92.2) fL MCH (25.7-32.2) pg MCHC (32.3-36.5) g/dL RDW (11.6-14.4) % Plt Count (163-337) x10^3/uL MPV (9.4-12.4) fL Gran % (34.0-67.9) % Immature Gran % (Auto) (0.001-0.429) % Nucleat RBC Rel Count (0.00-0.2) % Eos # (Auto) (0.04-0.54) x10^3/uL Immature Gran # (Auto) (0.001-0.031) x10^3u/L Absolute Lymphs (auto) (1.32-3.57) x10^3/uL Absolute Monos (auto) (0.30-0.82) x10^3/uL Absolute Nucleated RBC (0.00-0.012) x10^3u/L Lymphocytes % (21.8-53.1) % Monocytes % (5.3-12.2) % Eosinophils % (0.8-7.0) % Basophils % (0.2-1.2) % Absolute Granulocytes (1.78-5.38) x10^3/uL Basophils # (0.01-0.08) x10^3/uL D-Dimer (0.0-0.50) mg/L Sodium (135-145) mmol/L Potassium (3.5-5.1) mmol/L Chloride (98-107) mmol/L Carbon Dioxide (22-30) mmol/L Anion Gap (5-15) MEQ/L BUN (9-20) mg/dL Creatinine (0.66-1.25) mg/dL Estimated GFR ML/MIN Glucose (74-106) mg/dL Lactic Acid (0.4-2.0) Calcium (8.4-10.2) mg/dL Total Bilirubin (0.2-1.3) mg/dL AST (17-59) U/L ALT (0-50) U/L Alkaline Phosphatase (38-126) U/L Troponin I < 0.012 < 0.012 (0.000-0.033) ng/mL NT-Pro-B Natriuret Pep (<300) pg/mL Serum Total Protein (6.3-8.2) g/dL Albumin (3.5-5.0) g/dL Urine Color (Yellow) Urine Appearance (Clear) Urine pH (4.6-8.0) Ur Specific Hickman (1.005-1.030) Urine Protein (Negative) Urine Glucose (UA) (Negative) mg/dL Urine Ketones (Negative) Urine Blood (Negative) Urine Nitrite (Negative) Urine Bilirubin (Negative) Urine Urobilinogen (0.2) mg/dL Ur Leukocyte Esterase (Negative) U Hyaline Cast (Auto) (0-2) /LPF Urine Microscopic RBC (0-5) /HPF Urine Microscopic WBC (0-5) /HPF Ur Epithelial Cells (None Seen) /HPF Urine Bacteria (None Seen) /HPF Urine Culture Reflexed (NO) Influenza Type A Ag NEGATIVE (NEGATIVE) Influenza Type B Ag NEGATIVE (NEGATIVE) RSV (PCR) NEGATIVE (NEGATIVE) SARS-CoV-2 (PCR) NEGATIVE (NEGATIVE) Slides for Path Review 05/25/25 05/25/25 Range/Units 02:08 02:08 WBC 8.1 (4.23-9.07) x10^3/uL RBC 4.48 L (4.63-6.08) x10^6/uL Hgb 13.7 (13.7-17.5) g/dL Hct 41.6 (40.1-51.0) % MCV 92.9 H (79.0-92.2) fL MCH 30.6 (25.7-32.2) pg MCHC 32.9 (32.3-36.5) g/dL RDW 13.0 (11.6-14.4) % Plt Count 101 L (163-337) x10^3/uL MPV 9.7 (9.4-12.4) fL Gran % 91.8 H (34.0-67.9) % Immature Gran % (Auto) 0.5 H (0.001-0.429) % Nucleat RBC Rel Count 0.0 (0.00-0.2) % Eos # (Auto) 0 L (0.04-0.54) x10^3/uL Immature Gran # (Auto) 0.04 H (0.001-0.031) x10^3u/L Absolute Lymphs (auto) 0.54 L (1.32-3.57) x10^3/uL Absolute Monos (auto) 0.07 L (0.30-0.82) x10^3/uL Absolute Nucleated RBC 0.00 (0.00-0.012) x10^3u/L Lymphocytes % 6.7 L (21.8-53.1) % Monocytes % 0.9 L (5.3-12.2) % Eosinophils % 0.0 L (0.8-7.0) % Basophils % 0.1 L (0.2-1.2) % Absolute Granulocytes 7.46 H (1.78-5.38) x10^3/uL Basophils # 0.01 (0.01-0.08) x10^3/uL D-Dimer (0.0-0.50) mg/L Sodium 137 (135-145) mmol/L Potassium 4.5 (3.5-5.1) mmol/L Chloride 106 (98-107) mmol/L Carbon Dioxide 22 (22-30) mmol/L Anion Gap 12.3 (5-15) MEQ/L BUN 21 H (9-20) mg/dL Creatinine 1.16 (0.66-1.25) mg/dL Estimated GFR 65.7 ML/MIN Glucose 224 H (74-106) mg/dL Lactic Acid (0.4-2.0) Calcium 8.5 (8.4-10.2) mg/dL Total Bilirubin 1.10 (0.2-1.3) mg/dL AST 29 (17-59) U/L ALT 32 (0-50) U/L Alkaline Phosphatase 43 (38-126) U/L Troponin I (0.000-0.033) ng/mL NT-Pro-B Natriuret Pep (<300) pg/mL Serum Total Protein 6.7 (6.3-8.2) g/dL Albumin 3.8 (3.5-5.0) g/dL Urine Color (Yellow) Urine Appearance (Clear) Urine pH (4.6-8.0) Ur Specific Hickman (1.005-1.030) Urine Protein (Negative) Urine Glucose (UA) (Negative) mg/dL Urine Ketones (Negative) Urine Blood (Negative) Urine Nitrite (Negative) Urine Bilirubin (Negative) Urine Urobilinogen (0.2) mg/dL Ur Leukocyte Esterase (Negative) U Hyaline Cast (Auto) (0-2) /LPF Urine Microscopic RBC (0-5) /HPF Urine Microscopic WBC (0-5) /HPF Ur Epithelial Cells (None Seen) /HPF Urine Bacteria (None Seen) /HPF Urine Culture Reflexed (NO) Influenza Type A Ag (NEGATIVE) Influenza Type B Ag (NEGATIVE) RSV (PCR) (NEGATIVE) SARS-CoV-2 (PCR) (NEGATIVE) Slides for Path Review Radiology Exams: Radiology Procedures Category Date Time Status CHEST 1 VIEW (PORTABLE) Stat Exams 05/24/25 15:46 Completed CHEST WITH CONTRAST [CT] Stat Exams 05/24/25 17:19 Taken Medications: Medications Generic Name Dose Route Start Last Admin Trade Name Freq PRN Reason Stop Dose Admin Acetaminophen 325 mg 05/24/25 22:41 Acetaminophen 325 Mg Tablet PO 06/23/25 22:40 Q4H PRN PRN PAIN, FEVER, HEADACHE Albuterol/Ipratropium 3 ml 05/24/25 22:44 Ipratropium/Albuterol Sulfate 3 Ml Ampul.Neb IH 06/23/25 22:43 Q4HPRN PRN SHORTNESS OF BREATH/WHEEZING Heparin Sodium (Beef Lung) 5,000 unit 05/25/25 10:00 Heparin 5000 Units/0.5 Ml 5,000 Unit/0.5 Ml Syr SQ 06/24/25 09:59 BID JORGE Sodium Chloride 1,000 mls @ 100 mls/hr 05/24/25 16:00 05/24/25 15:59 Sodium Chloride 0.9% 1000 Ml IV 06/23/25 15:59 100 mls/hr .Q10H JORGE Administration Sodium Chloride 1,000 mls @ 100 mls/hr 05/24/25 22:45 Sodium Chloride 0.9% 1000 Ml IV 06/23/25 22:44 .Q10H JORGE Non-Formulary Medication 1 tab 05/25/25 10:00 Rosuvastatin Calcium [Rosuvastatin Calcium] PO 06/24/25 09:59 DAILY JORGE Ondansetron HCl 4 mg 05/24/25 22:41 Ondansetron Hcl 4 Mg/2 Ml Vial IV 06/23/25 22:40 Q6H PRN PRN NAUSEA/VOMITING Prednisone 40 mg 05/25/25 10:00 Prednisone 20 Mg Tablet PO 06/24/25 09:59 DAILY JORGE Discontinued Medications Generic Name Dose Route Start Last Admin Trade Name Ally PRN Reason Stop Dose Admin Acetaminophen 650 mg 05/24/25 15:47 05/24/25 15:58 Acetaminophen 325 Mg Tablet PO 05/24/25 15:48 650 mg STAT STA Administration Acetaminophen Confirm 05/24/25 15:55 Acetaminophen 325 Mg Tablet Administered 05/24/25 15:56 Dose 650 mg .ROUTE .STK-MED ONE Albuterol/Ipratropium 3 ml 05/24/25 19:44 05/24/25 20:04 Ipratropium/Albuterol Sulfate 3 Ml Ampul.Neb IH 05/24/25 19:45 3 ml STAT ONE Administration Albuterol/Ipratropium Confirm 05/24/25 19:51 Ipratropium/Albuterol Sulfate 3 Ml Ampul.Neb Administered 05/24/25 19:52 Dose 3 ml IH .STK-MED ONE Methylprednisolone Sodium 0 mg 05/24/25 19:44 05/24/25 19:54 Succinate 125 mg/ Sterile IV 05/24/25 19:45 125 mg Water 2 ml STAT ONE Administration Levofloxacin/Dextrose 500 mg in 100 mls @ 100 mls/hr 05/24/25 19:49 05/24/25 20:15 Levofloxacin 500mg/100ml D5w IV 05/24/25 20:48 100 mls/hr STAT STA 100 mls/hr Administration Levofloxacin/Dextrose Confirm 05/24/25 20:14 Levofloxacin 500mg/100ml D5w Administered 05/24/25 20:15 Dose 500 mg in 100 mls @ ud IV .STK-MED ONE Ibuprofen 600 mg 05/24/25 15:47 05/24/25 15:58 Ibuprofen 600 Mg Tablet PO 05/24/25 15:48 600 mg STAT STA Administration Ibuprofen Confirm 05/24/25 15:55 Ibuprofen 600 Mg Tablet Administered 05/24/25 15:56 Dose 600 mg .ROUTE .STK-MED ONE Methylprednisolone Sodium Succinate Confirm 05/24/25 19:54 Methylprednis Sod Succ 125 Mg/2 Ml Vial Administered 05/24/25 19:55 Dose 125 mg .ROUTE .STK-MED ONE Sterile Water Confirm 05/24/25 19:54 Water For Injection,Sterile 10 Ml Vial Administered 05/24/25 19:55 Dose 10 ml IJ .STK-MED ONE Assessment/Plan (1) Acute respiratory failure with hypoxia Current Visit: Yes Status: Acute Assessment & Plan: -Etiology unclear, possibly acute viral URI vs inflammatory flare given leuko cytosis and fever. -Currently stable on room air. -Mild wheezing and diminished breath sounds on exam. -Continue supportive care; no supplemental O2 needed at present. -PRN DuoNebs. -Short course prednisone for airway inflammation. -Outpatient pulmonary follow-up recommended given emphysema on imaging and prior Long COVID. Code(s): J96.01 - ACUTE RESPIRATORY FAILURE WITH HYPOXIA (2) SIRS (systemic inflammatory response syndrome) Current Visit: Yes Status: Acute Assessment & Plan: -Met criteria with fever, tachycardia. No clear infection source. -Tachycardia resolved with IV fluids. -Monitor off antibiotics. -Acetaminophen PRN for fever. -cbc reviewed now wnl -Follow blood/urine cultures for growth. Code(s): R65.10 - SIRS OF NON-INFECTIOUS ORIGIN W/O ACUTE ORGAN DYSFUNCTION (3) Fever Current Visit: Yes Status: Acute Assessment & Plan: -Low-grade, likely viral/inflammatory. -Acetaminophen PRN, monitor culture results. Code(s): R50.9 - FEVER, UNSPECIFIED (4) Tachycardia Current Visit: Yes Status: Acute Assessment & Plan: -Resolved post-fluid resuscitation. -Maintain gentle IV fluids until oral intake reliable. Code(s): R00.0 - TACHYCARDIA, UNSPECIFIED (5) Granulomatous disease Current Visit: Yes Status: Acute Assessment & Plan: -CTA chest with emphysema and old granulomatous disease. - occupational exposure, prior Long COVID. -Outpatient pulmonary referral for PFTs, further characterization of emphysema, and management of abnormal imaging findings. Code(s): D71 - FUNCTIONAL DISORDERS OF POLYMORPHONUCLEAR NEUTROPHILS (6) HLD (hyperlipidemia) Current Visit: Yes Status: Acute Assessment & Plan: -Chronic; stable. -Continue home statin therapy Code(s): E78.5 - HYPERLIPIDEMIA, UNSPECIFIED (7) DARIAN (obstructive sleep apnea) Current Visit: Yes Status: Acute Assessment & Plan: -Known, not using CPAP. -Re-educate on CPAP adherence; reinforce outpatient follow-up. Code(s): G47.33 - OBSTRUCTIVE SLEEP APNEA (ADULT) (PEDIATRIC) (8) Nausea & vomiting Current Visit: Yes Status: Acute Qualifiers: Vomiting type: unspecified Qualified Code(s): R11.2 - Nausea with vomiting, unspecified Assessment & Plan: -Likely viral/inflammatory, improved. -Ondansetron PRN; advance diet as tolerate VTE: Heparin PPI: Protonix Dispo: 1-2 days Code status: Full code Plan of care time spent > 30 mins Code(s): R11.2 - NAUSEA WITH VOMITING, UNSPECIFIED
[2025-05-25 07:44] VITALS: RESP 20
--- NOTE | 2025-05-25 08:18 | XRAY ---
Indication: Short of breath. Fever. Positive d-dimer. Multiple contiguous axial images obtained through the chest using 100 cc Isovue 370 contrast and PE protocol. Comparison: None Suboptimal opacification pulmonary arteries and mild diffuse respiration limits evaluation for pulmonary embolus. No obvious pulmonary embolus. Heart not enlarged. Aorta is normal in course and caliber. Small mediastinal/bilateral hilar calcified nodes. No pathologic mediastinal/hilar lymphadenopathy. Lungs demonstrates mild diffuse pulmonary emphysema and scattered tiny bilateral calcified granulomas. Minimal bilateral deep atelectasis. No focal infiltrate, consolidation, or effusion. Bony thorax intact with minimal/mild degenerative changes throughout spine. Limited upper abdomen demonstrates fatty liver and 2 small round right lobe hepatic cysts largest 1.7 cm. Also incidental cholecystectomy clips and splenic calcified granulomas. Impression: 1. Pulmonary embolus evaluation limited by suboptimal contrast opacification and respiration artifact. No obvious pulmonary embolus. No acute cardiopulmonary debilities. 2. Chronic findings including pulmonary emphysema, degenerative spondylosis, fatty liver, hepatic cysts, and old granulomatous disease.
[2025-05-25] MEDS: HEPARIN 5000 UNITS/0.5 ML (HIGH RISK MED) SQ SCH (09:00)
[2025-05-25] MEDS: PROTONIX 40 MG IV IV SCH (09:01)
[2025-05-25] MEDS: DELTASONE 20 MG PO SCH (09:01)
[2025-05-25] MEDS: ZOCOR 20MG PO SCH (09:02)
[2025-05-25] MEDS ORDERED: NON-FORMULARY ITEM (Rosuvastatin Calcium [Rosuvastatin Calcium] 10 MG Tablet) PO SCH (10:00)
[2025-05-25 11:51] VITALS: BP 145/70; PULSE 84; TEMP 97.9; O2SAT 94
--- NOTE | 2025-05-25 12:43 | PCM.DS ---
Discharge Summary Date of Admission: 05/24/25 20:27 Date of Discharge: 05/25/25 Admitting Physician: ERIN GROSS MD Primary Care Provider: FABIOLA CHAVEZ DO Allergies Allergies Penicillins Allergy (Verified 05/24/25 16:08) Sulfa (Sulfonamide Antibiotics) Allergy (Verified 05/24/25 16:08) Hospital Summary - Hospital Course Hospital Course: Mr. Vallejo is a 74-year-old male with class I obesity, obstructive sleep apnea (non-adherent to CPAP), hyperlipidemia, and history of prolonged post-COVID symptoms. He presented with acute onset of nausea, vomiting, dizziness, weakness, and shortness of breath while at work. He was hypoxic at an outpatient clinic (SpO? in the 80s on room air), prompting transfer to the ED. Initial evaluation showed fever (100.6 F), tachycardia in the 120s, leukocytosis, and hypoxia, though oxygen saturation improved to the mid-90s on room air. CTA chest ruled out pulmonary embolism and showed emphysema, fatty liver, hepatic cyst, and old granulomatous disease. Viral panel was negative. He was treated with IV fluids and one dose of levofloxacin. Since admission, his leukocytosis has resolved (WBC now 8.1), he has had no further fever, nausea, or vomiting, and his weakness has improved. He remains stable on room air, requesting discharge home. Discharge Note New Diagnosis: fever of unknown cause New Medications: None Follow Up: PCP I spent 35 minutes [id number] with the patient on the day of discharge performing discharge exam, discussing hospital stay and discharge instructions with patient and caregivers, preparation of discharge records, prescriptions & referral forms and addressing any questions/concerns the patient had as documented above. - Vitals & Intake/Output Vital Signs: Vital Signs Temperature 97.9 F 05/25/25 11:50 Pulse Rate 84 05/25/25 11:50 Respiratory Rate 20 05/25/25 11:50 Blood Pressure 145/70 05/25/25 11:50 O2 Sat by Pulse Oximetry 94 L 05/25/25 11:50 Intake & Output: Intake & Output 05/23/25 05/24/25 05/25/25 05/26/25 11:59 11:59 11:59 11:59 Intake Total 1960 Balance 1960 Weight 108.5 kg - Lab Result Diagrams: 05/25/25 02:08 05/25/25 02:08 Lab Results-Last 24 Hrs: Lab Results-Last 24 Hours 05/24/25 05/24/25 05/24/25 Range/Units 15:45 15:45 15:45 WBC 10.6 H (4.23-9.07) x10^3/uL RBC 4.73 (4.63-6.08) x10^6/uL Hgb 14.6 (13.7-17.5) g/dL Hct 43.7 (40.1-51.0) % MCV 92.4 H (79.0-92.2) fL MCH 30.9 (25.7-32.2) pg MCHC 33.4 (32.3-36.5) g/dL RDW 13.0 (11.6-14.4) % Plt Count 109 L (163-337) x10^3/uL MPV 9.6 (9.4-12.4) fL Gran % 89.4 H (34.0-67.9) % Immature Gran % (Auto) 0.8 H (0.001-0.429) % Nucleat RBC Rel Count 0.0 (0.00-0.2) % Eos # (Auto) 0 L (0.04-0.54) x10^3/uL Immature Gran # (Auto) 0.08 H (0.001-0.031) x10^3u/L Absolute Lymphs (auto) 0.57 L (1.32-3.57) x10^3/uL Absolute Monos (auto) 0.42 (0.30-0.82) x10^3/uL Absolute Nucleated RBC 0.00 (0.00-0.012) x10^3u/L Lymphocytes % 5.4 L (21.8-53.1) % Monocytes % 4.0 L (5.3-12.2) % Eosinophils % 0.0 L (0.8-7.0) % Basophils % 0.4 (0.2-1.2) % Absolute Granulocytes 9.46 H (1.78-5.38) x10^3/uL Basophils # 0.04 (0.01-0.08) x10^3/uL D-Dimer (0.0-0.50) mg/L Sodium 136 (135-145) mmol/L Potassium 4.5 (3.5-5.1) mmol/L Chloride 102 (98-107) mmol/L Carbon Dioxide 26 (22-30) mmol/L Anion Gap 12.2 (5-15) MEQ/L BUN 19 (9-20) mg/dL Creatinine 1.19 (0.66-1.25) mg/dL Estimated GFR 63.7 ML/MIN Glucose 139 H (74-106) mg/dL Lactic Acid 1.9 (0.4-2.0) Calcium 8.8 (8.4-10.2) mg/dL Total Bilirubin 1.20 (0.2-1.3) mg/dL AST 33 (17-59) U/L ALT 34 (0-50) U/L Alkaline Phosphatase 50 (38-126) U/L Troponin I (0.000-0.033) ng/mL NT-Pro-B Natriuret Pep (<300) pg/mL Serum Total Protein 7.4 (6.3-8.2) g/dL Albumin 4.3 (3.5-5.0) g/dL Urine Color (Yellow) Urine Appearance (Clear) Urine pH (4.6-8.0) Ur Specific [place] (1.005-1.030) Urine Protein (Negative) Urine Glucose (UA) (Negative) mg/dL Urine Ketones (Negative) Urine Blood (Negative) Urine Nitrite (Negative) Urine Bilirubin (Negative) Urine Urobilinogen (0.2) mg/dL Ur Leukocyte Esterase (Negative) U Hyaline Cast (Auto) (0-2) /LPF Urine Microscopic RBC (0-5) /HPF Urine Microscopic WBC (0-5) /HPF Ur Epithelial Cells (None Seen) /HPF Urine Bacteria (None Seen) /HPF Urine Culture Reflexed (NO) Influenza Type A Ag (NEGATIVE) Influenza Type B Ag (NEGATIVE) RSV (PCR) (NEGATIVE) SARS-CoV-2 (PCR) (NEGATIVE) Slides for Path Review YES 05/24/25 05/24/25 05/24/25 Range/Units 15:45 15:45 15:51 WBC (4.23-9.07) x10^3/uL RBC (4.63-6.08) x10^6/uL Hgb (13.7-17.5) g/dL Hct (40.1-51.0) % MCV (79.0-92.2) fL MCH (25.7-32.2) pg MCHC (32.3-36.5) g/dL RDW (11.6-14.4) % Plt Count (163-337) x10^3/uL MPV (9.4-12.4) fL Gran % (34.0-67.9) % Immature Gran % (Auto) (0.001-0.429) % Nucleat RBC Rel Count (0.00-0.2) % Eos # (Auto) (0.04-0.54) x10^3/uL Immature Gran # (Auto) (0.001-0.031) x10^3u/L Absolute Lymphs (auto) (1.32-3.57) x10^3/uL Absolute Monos (auto) (0.30-0.82) x10^3/uL Absolute Nucleated RBC (0.00-0.012) x10^3u/L Lymphocytes % (21.8-53.1) % Monocytes % (5.3-12.2) % Eosinophils % (0.8-7.0) % Basophils % (0.2-1.2) % Absolute Granulocytes (1.78-5.38) x10^3/uL Basophils # (0.01-0.08) x10^3/uL D-Dimer 0.54 H (0.0-0.50) mg/L Sodium (135-145) mmol/L Potassium (3.5-5.1) mmol/L Chloride (98-107) mmol/L Carbon Dioxide (22-30) mmol/L Anion Gap (5-15) MEQ/L BUN (9-20) mg/dL Creatinine (0.66-1.25) mg/dL Estimated GFR ML/MIN Glucose (74-106) mg/dL Lactic Acid (0.4-2.0) Calcium (8.4-10.2) mg/dL Total Bilirubin (0.2-1.3) mg/dL AST (17-59) U/L ALT (0-50) U/L Alkaline Phosphatase (38-126) U/L Troponin I < 0.012 (0.000-0.033) ng/mL NT-Pro-B Natriuret Pep 127 (<300) pg/mL Serum Total Protein (6.3-8.2) g/dL Albumin (3.5-5.0) g/dL Urine Color Yellow (Yellow) Urine Appearance Clear (Clear) Urine pH 8.0 (4.6-8.0) Ur Specific [place] 1.020 (1.005-1.030) Urine Protein Trace A (Negative) Urine Glucose (UA) Negative (Negative) mg/dL Urine Ketones Negative (Negative) Urine Blood Trace (Negative) Urine Nitrite Negative (Negative) Urine Bilirubin Negative (Negative) Urine Urobilinogen 1.0 A (0.2) mg/dL Ur Leukocyte Esterase Negative (Negative) U Hyaline Cast (Auto) NONE SEEN (0-2) /LPF Urine Microscopic RBC 6-10 A (0-5) /HPF Urine Microscopic WBC 0-2 (0-5) /HPF Ur Epithelial Cells None Seen (None Seen) /HPF Urine Bacteria None Seen (None Seen) /HPF Urine Culture Reflexed YES (NO) Influenza Type A Ag (NEGATIVE) Influenza Type B Ag (NEGATIVE) RSV (PCR) (NEGATIVE) SARS-CoV-2 (PCR) (NEGATIVE) Slides for Path Review 05/24/25 05/24/25 05/25/25 Range/Units 16:13 19:55 02:08 WBC (4.23-9.07) x10^3/uL RBC (4.63-6.08) x10^6/uL Hgb (13.7-17.5) g/dL Hct (40.1-51.0) % MCV (79.0-92.2) fL MCH (25.7-32.2) pg MCHC (32.3-36.5) g/dL RDW (11.6-14.4) % Plt Count (163-337) x10^3/uL MPV (9.4-12.4) fL Gran % (34.0-67.9) % Immature Gran % (Auto) (0.001-0.429) % Nucleat RBC Rel Count (0.00-0.2) % Eos # (Auto) (0.04-0.54) x10^3/uL Immature Gran # (Auto) (0.001-0.031) x10^3u/L Absolute Lymphs (auto) (1.32-3.57) x10^3/uL Absolute Monos (auto) (0.30-0.82) x10^3/uL Absolute Nucleated RBC (0.00-0.012) x10^3u/L Lymphocytes % (21.8-53.1) % Monocytes % (5.3-12.2) % Eosinophils % (0.8-7.0) % Basophils % (0.2-1.2) % Absolute Granulocytes (1.78-5.38) x10^3/uL Basophils # (0.01-0.08) x10^3/uL D-Dimer (0.0-0.50) mg/L Sodium (135-145) mmol/L Potassium (3.5-5.1) mmol/L Chloride (98-107) mmol/L Carbon Dioxide (22-30) mmol/L Anion Gap (5-15) MEQ/L BUN (9-20) mg/dL Creatinine (0.66-1.25) mg/dL Estimated GFR ML/MIN Glucose (74-106) mg/dL Lactic Acid (0.4-2.0) Calcium (8.4-10.2) mg/dL Total Bilirubin (0.2-1.3) mg/dL AST (17-59) U/L ALT (0-50) U/L Alkaline Phosphatase (38-126) U/L Troponin I < 0.012 < 0.012 (0.000-0.033) ng/mL NT-Pro-B Natriuret Pep (<300) pg/mL Serum Total Protein (6.3-8.2) g/dL Albumin (3.5-5.0) g/dL Urine Color (Yellow) Urine Appearance (Clear) Urine pH (4.6-8.0) Ur Specific [place] (1.005-1.030) Urine Protein (Negative) Urine Glucose (UA) (Negative) mg/dL Urine Ketones (Negative) Urine Blood (Negative) Urine Nitrite (Negative) Urine Bilirubin (Negative) Urine Urobilinogen (0.2) mg/dL Ur Leukocyte Esterase (Negative) U Hyaline Cast (Auto) (0-2) /LPF Urine Microscopic RBC (0-5) /HPF Urine Microscopic WBC (0-5) /HPF Ur Epithelial Cells (None Seen) /HPF Urine Bacteria (None Seen) /HPF Urine Culture Reflexed (NO) Influenza Type A Ag NEGATIVE (NEGATIVE) Influenza Type B Ag NEGATIVE (NEGATIVE) RSV (PCR) NEGATIVE (NEGATIVE) SARS-CoV-2 (PCR) NEGATIVE (NEGATIVE) Slides for Path Review 05/25/25 05/25/25 Range/Units 02:08 02:08 WBC 8.1 (4.23-9.07) x10^3/uL RBC 4.48 L (4.63-6.08) x10^6/uL Hgb 13.7 (13.7-17.5) g/dL Hct 41.6 (40.1-51.0) % MCV 92.9 H (79.0-92.2) fL MCH 30.6 (25.7-32.2) pg MCHC 32.9 (32.3-36.5) g/dL RDW 13.0 (11.6-14.4) % Plt Count 101 L (163-337) x10^3/uL MPV 9.7 (9.4-12.4) fL Gran % 91.8 H (34.0-67.9) % Immature Gran % (Auto) 0.5 H (0.001-0.429) % Nucleat RBC Rel Count 0.0 (0.00-0.2) % Eos # (Auto) 0 L (0.04-0.54) x10^3/uL Immature Gran # (Auto) 0.04 H (0.001-0.031) x10^3u/L Absolute Lymphs (auto) 0.54 L (1.32-3.57) x10^3/uL Absolute Monos (auto) 0.07 L (0.30-0.82) x10^3/uL Absolute Nucleated RBC 0.00 (0.00-0.012) x10^3u/L Lymphocytes % 6.7 L (21.8-53.1) % Monocytes % 0.9 L (5.3-12.2) % Eosinophils % 0.0 L (0.8-7.0) % Basophils % 0.1 L (0.2-1.2) % Absolute Granulocytes 7.46 H (1.78-5.38) x10^3/uL Basophils # 0.01 (0.01-0.08) x10^3/uL D-Dimer (0.0-0.50) mg/L Sodium 137 (135-145) mmol/L Potassium 4.5 (3.5-5.1) mmol/L Chloride 106 (98-107) mmol/L Carbon Dioxide 22 (22-30) mmol/L Anion Gap 12.3 (5-15) MEQ/L BUN 21 H (9-20) mg/dL Creatinine 1.16 (0.66-1.25) mg/dL Estimated GFR 65.7 ML/MIN Glucose 224 H (74-106) mg/dL Lactic Acid (0.4-2.0) Calcium 8.5 (8.4-10.2) mg/dL Total Bilirubin 1.10 (0.2-1.3) mg/dL AST 29 (17-59) U/L ALT 32 (0-50) U/L Alkaline Phosphatase 43 (38-126) U/L Troponin I (0.000-0.033) ng/mL NT-Pro-B Natriuret Pep (<300) pg/mL Serum Total Protein 6.7 (6.3-8.2) g/dL Albumin 3.8 (3.5-5.0) g/dL Urine Color (Yellow) Urine Appearance (Clear) Urine pH (4.6-8.0) Ur Specific [place] (1.005-1.030) Urine Protein (Negative) Urine Glucose (UA) (Negative) mg/dL Urine Ketones (Negative) Urine Blood (Negative) Urine Nitrite (Negative) Urine Bilirubin (Negative) Urine Urobilinogen (0.2) mg/dL Ur Leukocyte Esterase (Negative) U Hyaline Cast (Auto) (0-2) /LPF Urine Microscopic RBC (0-5) /HPF Urine Microscopic WBC (0-5) /HPF Ur Epithelial Cells (None Seen) /HPF Urine Bacteria (None Seen) /HPF Urine Culture Reflexed (NO) Influenza Type A Ag (NEGATIVE) Influenza Type B Ag (NEGATIVE) RSV (PCR) (NEGATIVE) SARS-CoV-2 (PCR) (NEGATIVE) Slides for Path Review Micro Results-Entire Visit: Microbiology 05/24/25 15:51 Urine Culture - Preliminary Clean Catch Midstream NO GROWTH TO DATE - Radiology Exams Ordered Rad Exams-Entire Visit: Radiology Procedures Category Date Time Status CHEST 1 VIEW (PORTABLE) Stat Exams 05/24/25 15:46 Completed CHEST WITH CONTRAST [CT] Stat Exams 05/24/25 17:19 Completed - Procedures and Test Procedures and Tests throughout Hospitalization: Therapy Orders & Screens 05/24/25 20:04 Respiratory Therapy Assessment DAILY Comment: 05/24/25 22:41 Oxygen Nasal Cannula 2 lpm Comment: Diagnosis: Hypoxia, fever, tachycardia Discharge Exam General Appearance: no apparent distress Neurologic Exam: alert, oriented x 3, cooperative Eye Exam: PERRL Ears, Nose, Throat Exam: normal ENT inspection Neck Exam: normal inspection Respiratory Exam: normal breath sounds, lungs clear Cardiovascular Exam: regular rate/rhythm, normal heart sounds Gastrointestinal/Abdomen Exam: soft, normal bowel sounds Male Genitalia Exam: deferred Rectal Exam: deferred Back Exam: normal inspection Extremity Exam: normal inspection Skin Exam: normal color Final Diagnosis/Problem List - Final Discharge Diagnosis/Problem (1) Acute respiratory failure with hypoxia Current Visit: Yes Status: Acute Assessment & Plan: Stable on room air, no supplemental oxygen required. Discharged with PRN DuoNebs and short prednisone taper for airway inflammation. Outpatient pulmonary referral for follow-up and PFTs. Code(s): J96.01 - ACUTE RESPIRATORY FAILURE WITH HYPOXIA (2) SIRS (systemic inflammatory response syndrome) Current Visit: Yes Status: Acute Assessment & Plan: Initially met criteria with fever and tachycardia, both now resolved. Blood/urine cultures pending; monitor outpatient for growth. No antibiotics at discharge unless cultures turn positive. Code(s): R65.10 - SIRS OF NON-INFECTIOUS ORIGIN W/O ACUTE ORGAN DYSFUNCTION (3) Fever Current Visit: Yes Status: Acute Assessment & Plan: Low-grade, likely viral/inflammatory. Resolved; acetaminophen PRN if recurrence. Code(s): R50.9 - FEVER, UNSPECIFIED (4) Tachycardia Current Visit: Yes Status: Acute Assessment & Plan: Resolved with IV fluids. Encourage oral hydration; no further intervention needed. Code(s): R00.0 - TACHYCARDIA, UNSPECIFIED (5) Granulomatous disease Current Visit: Yes Status: Acute Assessment & Plan: CTA chest with emphysema, old granulomatous disease. Outpatient pulmonary follow-up recommended. Avoid respiratory irritants; discuss prior occupational exposure. Code(s): D71 - FUNCTIONAL DISORDERS OF POLYMORPHONUCLEAR KJ * DO NOT USE * (6) HLD (hyperlipidemia) Current Visit: Yes Status: Acute Assessment & Plan: Stable, continue statin therapy at home. Code(s): E78.5 - HYPERLIPIDEMIA, UNSPECIFIED (7) DARIAN (obstructive sleep apnea) Current Visit: Yes Status: Acute Assessment & Plan: Non-adherent with CPAP. Reinforce CPAP compliance. Outpatient follow-up with sleep medicine. Code(s): G47.33 - OBSTRUCTIVE SLEEP APNEA (ADULT) (PEDIATRIC) (8) Nausea & vomiting Current Visit: Yes Status: Acute Assessment & Plan: Resolved, tolerating oral intake. Code(s): R11.2 - NAUSEA WITH VOMITING, UNSPECIFIED - Discharge Disposition: Home, Self-Care Condition: Stable Prescriptions: No Action Rosuvastatin Calcium 1 tab PO DAILY Instructions: Fever in adults - Discharge instructions Follow up with: FABIOLA CHAVEZ DO [Primary Care Provider, [facility]] - 06/03/25 2:45 pm Forms: Discharge Instructions
--- NOTE | 2025-05-25 12:53 | PCM.DCORD ---
- Discharge Discharge Date: 05/25/25 Disposition: Home, Self-Care Condition: Stable Prescriptions: Continue Rosuvastatin Calcium 1 tab PO DAILY Instructions: Fever in adults - Discharge instructions Follow up with: FABIOLA CHAVEZ DO [Primary Care Provider, [facility]] - 06/03/25 2:45 pm Forms: Discharge Instructions
== END 2025-05-25 13:08 | disposition home or self-care (01) ==
LOC: ED 15:20 → MED SURG 20:27
PROVIDERS: ADMIT Hospitalist; ATTEND Hospitalist
DX: J96.01 Acute respiratory failure with hypoxia (principal); R65.10 Systemic inflammatory response syndrome (SIRS) of non-infectious origin without acute organ dysfunction; R50.9 Fever, unspecified; R00.0 Tachycardia, unspecified; E78.5 Hyperlipidemia, unspecified; G47.33 Obstructive sleep apnea (adult) (pediatric); R11.2 Nausea with vomiting, unspecified; E66.811 Obesity, class 1; J98.4 Other disorders of lung; Z79.899 Other long term (current) drug therapy; Z86.16 Personal history of COVID-19
CPT/HCPCS: 36415; 71045; 71260; 80053; 81001; 83605; 83880; 84484; 85025; 85379; 87040; 87086; 87637; 93005; 93041; 93268; 94640; 94760; 99285; G0378; Q3014